=== PATIENT | female | born 1995 | race African-American/Black ===

== ENCOUNTER 2022-05-24 19:54 | Emergency (ER) | payer OTHER ==
[~2022-05-24] VITALS: Ht 152.4 cm; Wt 49.5 kg
[2022-05-24 20:01] VITALS: BP 129/76
--- NOTE | 2022-05-24 20:06 | NUR ---
URINE COLLECTED, PT TO BED 11.
--- NOTE | 2022-05-24 20:23 | NUR ---
ASSUMED CARE OF PT AT THIS TIME THIS. REPORT GIVEN BY KRISTINE CARRION. PT CAME IN FOR SPOTTING. CRAMPS IN STOMACH. DENIES ANY N/V/D. LMP 04/17/22. . PT PLACED ON BRUSH MATERIAL PREPARER. WAITING EVALUATION FROM .
[2022-05-24] MEDS ORDERED: NITR100C7 PO (20:47)
--- NOTE | 2022-05-24 21:08 | NUR ---
BLOOD DRAWN AND SENT WITH LAB.
[2022-05-24 21:20] LABS: APPEARANCE,URINE CLEAR (CLEAR); BILIRUBIN,URINE NEGATIVE (NEGATIVE); BLOOD, URINE 3+ (NEGATIVE); COLOR,URINE YELLOW (YELLOW); LEUKOCYTE ESTERASE ,URINE NEGATIVE (NEGATIVE); NITRITE, URINE NEGATIVE (NEGATIVE); UGLUCOSE NEGATIVE (NEGATIVE)
[2022-05-24 21:37] LABS: OTHER CASTS, URINE None Seen /LPF (None Seen); WBC,URINE 0-5 /HPF (0-5)
[2022-05-24 23:03] VITALS: BP 131/60
--- NOTE | 2022-05-24 23:05 | NUR ---
Dr Perales at bedside given discharge paperwork.
--- NOTE | 2022-05-24 23:06 | NUR ---
Patient discharged with v/s stable. Written and verbal after care instructions given and explained. Patient verbalized understanding. Ambulatory with steady gait. All questions addressed prior to discharge. Advised to follow up with PMD.
== END 2022-05-24 23:06 | disposition home or self-care (01) ==
LOC: MED 19:54
DX: O23.11 Infections of bladder in pregnancy, first trimester (principal); O21.8 Other vomiting complicating pregnancy; N30.90 Cystitis, unspecified without hematuria; J45.909 Unspecified asthma, uncomplicated
CPT/HCPCS: 36415; 76817; 81001; 81025; 84702; 99284; Q0092